=== PATIENT | female | born 1955 | race Caucasian/White ===

== ENCOUNTER 2022-03-17 21:31 | Emergency (ER) | payer BC ==
[2022-03-17] MEDS ORDERED: METFORMIN HYD1000 MG PO (21:39)
[2022-03-17] MEDS ORDERED: CLARITIN10 MG PO (21:40)
[2022-03-17] MEDS ORDERED: OMEPRAZOLE40 MG PO (21:40)
[2022-03-17] MEDS ORDERED: PROZAC20 MG PO (21:40)
[2022-03-17] MEDS ORDERED: LIPITOR40 MG PO (21:41)
[2022-03-17] MEDS ORDERED: ASPIRIN ADULT L81 M2 PO (21:41)
[2022-03-17] MEDS ORDERED: TRAZODONE150 MG PO (21:42)
[2022-03-17 21:59] LABS: BASO % 0.7 % (0.0-1.0); HEMATOCRIT 34.2 % (37.0-47.0); LYMPH # 0.5 10*3/uL (1.3-4.4); LYMPH % 15.7 % (27.0-41.0); MEAN CELL VOLUME 83.6 fl (81.0-99.0); MEAN CORPUSCULAR HGB 29.3 pg (27.0-31.0); MEAN CORPUSCULAR HGB CONC 35.1 g/dl (33.0-37.0); MEAN PLATELET VOLUME 9.3 fl (9.6-12.3); MONO # 0.2 10*3/uL (0.1-1.0); MONO % 6.2 % (3.0-9.0); NEUT # 2.4 10*3/uL (2.3-7.9); NEUT % 77.1 % (47.0-73.0); PLATELET COUNT AUTOMATED 105 10*3/uL (130-400); RED BLOOD COUNT 4.09 10*6/uL (4.10-5.10); RED CELL DISTRI WIDTH 13.6 % (0-14.5); WHITE BLOOD COUNT 3.1 10*3/uL (4.8-10.8)
[2022-03-17 22:34] LABS: CREATININE 1.18 mg/dL (0.55-1.02); POTASSIUM 3.5 mmol/L (3.5-5.1); TOTAL PROTEIN 6.9 gm/dL (6.4-8.2)
[2022-03-18] MEDS ORDERED: ONDANSETRON4 MG SL (01:54)
== END 2022-03-18 02:50 | disposition home or self-care (01) ==
LOC: ED 21:31
PROVIDERS: Internal Medicine
DX: B34.9 Viral infection, unspecified (principal); Z20.822 Contact with and (suspected) exposure to COVID-19; N17.9 Acute kidney failure, unspecified; D72.819 Decreased white blood cell count, unspecified; E44.0 Moderate protein-calorie malnutrition; E87.1 Hypo-osmolality and hyponatremia; E83.42 Hypomagnesemia; Z79.899 Other long term (current) drug therapy; Z79.82 Long term (current) use of aspirin